=== PATIENT | male | born 1980 | race Caucasian/White ===

== ENCOUNTER 2023-06-21 18:59 | Emergency (ER) | payer SELFPAY ==
[~2023-06-21] VITALS: Ht 185.4 cm; Wt 104.3 kg
[2023-06-21 19:09] VITALS: BP_SYST 120; PULSE 98; RESP 18; TEMP 98.3; O2SAT 100
[2023-06-21] MEDS ORDERED: NABU-140 PO (20:49)
== END 2023-06-21 20:56 | disposition home or self-care (01) ==
LOC: SED 18:59
DX: S60.221A Contusion of right hand, initial encounter (principal); Y04.0XXA Assault by unarmed brawl or fight, initial encounter; Y93.89 Activity, other specified; Y92.89 Other specified places as the place of occurrence of the external cause; Y99.8 Other external cause status
CPT/HCPCS: 99283